=== PATIENT | female | born 2000 | race Hispanic/Latino ===

== ENCOUNTER 2022-05-09 15:53 | Emergency (ER) | payer OTHER ==
[~2022-05-09] VITALS: Ht 162.6 cm; Wt 99.8 kg
[2022-05-09 16:41] LABS: CLARITY,URINE CLOUDY (CLEAR); COLOR,URINE YELLOW (YELLOW); KETONES,URINE 1+ (NEGATIVE); LEUKOCYTE ESTERASE ,URINE 1+ (NEGATIVE); NITRITE,URINE NEGATIVE (NEGATIVE); PROTEIN,URINE DIPSTICK NEGATIVE (NEGATIVE); URINE UROBILINOGEN 0.2 mg/dL (0.2 - 1)
[2022-05-09 16:46] LABS: BACTERIA,URINE MANY /HPF; EPITHELIAL CELLS,URINE MANY /LPF; WBC,URINE (MAN) 21-50 /HPF (0-5)
[2022-05-09 16:48] LABS: MUCUS,URINE MODERATE (RARE)
[2022-05-09] MEDS ORDERED: MACROBID 100 M100 MG PO (17:23)
[2022-05-09] MEDS ORDERED: DIFLUCAN100 MG PO (17:24)
[2022-05-09 17:40] VITALS: BP 115/61
== END 2022-05-09 17:41 | disposition home or self-care (01) ==
LOC: ER 16:18
DX: B37.9 Candidiasis, unspecified (principal); N39.0 Urinary tract infection, site not specified; E28.2 Polycystic ovarian syndrome
CPT/HCPCS: 81001; 81025; 99283

== ENCOUNTER 2022-10-22 10:28 | Emergency (ER) | payer OTHER ==
[~2022-10-22] VITALS: Ht 162.6 cm; Wt 99.8 kg
[~2022-10-22 10:28] MED LIST: DIFLUCAN100 MG PO; MACROBID 100 M100 MG PO
[2022-10-22] MEDS ORDERED: SODIUM CHLORIDE 0.9% 1000ML 1,000 ML IV STA (10:36)
[2022-10-22] MEDS ORDERED: KETOROLAC TROMETHAMINE 30 MG/ML VIAL IV STA (10:36)
[2022-10-22 10:56] LABS: BASOPHILS % 0.3 % (0.0-1.0); EOSINOPHILS # (AUTO) 0.1 (0.0-0.4); EOSINOPHILS % 0.4 % (0.0-6.0); HEMATOCRIT 39.8 % (34.2-44.1); HEMOGLOBIN 12.6 g/dL (12.0-16.0); LYMPHOCYTES # (AUTO) 1.5 (1.0-3.2); LYMPHOCYTES % 11.5 % (18.0-39.1); MEAN CORPUSCULAR HEMOGLOBIN 25.7 pg (28-32); MEAN CORPUSCULAR HGB CONC 31.7 g/dL (31-35); MEAN CORPUSCULAR VOLUME 81.1 fL (81-99); MONOCYTES # (AUTO) 0.8 (0.2-0.8); MONOCYTES % 6.1 % (4.4-11.3); NEUTROPHILS # (AUTO) 10.8 (2.1-6.9); NEUTROPHILS % 81.1 % (38.7-80.0); PLATELET COUNT 239 x10e3/uL (140-360); RED BLOOD COUNT 4.91 x10e6/uL (3.6-5.1); RED CELL DISTRIBUTION WIDTH 14.3 % (11.7-14.4)
[2022-10-22] MEDS ORDERED: ACETAMINOPHEN 325 MG TAB PO ONE (11:00)
[2022-10-22 11:07] LABS: STREPTOCOCCUS GRP A ANTIGEN NEGATIVE (NEGATIVE)
[2022-10-22 11:11] LABS: INR 1.04; PROTHROMBIN TIME 14.1 seconds (11.9-14.5)
[2022-10-22 11:20] LABS: ALANINE AMINOTRANSFERASE 19 IU/L (0-55); ALBUMIN 3.8 g/dL (3.5-5.0); ALKALINE PHOSPHATASE 85 IU/L (40-150); ANION GAP 14.9 mmol/L (8-16); BLOOD UREA NITROGEN 9 mg/dL (7-26); BUN/CREATININE RATIO 12 (6-25); CARBON DIOXIDE 21 mmol/L (22-29); CHLORIDE 105 mmol/L (98-107); CREATININE, SERUM 0.78 mg/dL (0.57-1.11); GLUCOSE 116 mg/dL (74-118); POTASSIUM 3.9 mmol/L (3.5-5.1); SODIUM 137 mmol/L (136-145)
[2022-10-22] MEDS ORDERED: DEXAMETHASONE SOD PHOS 10 MG/1 ML VIAL IV ONE (12:30)
[2022-10-22] MEDS ORDERED: AMOX TR-K CLV1 EAC2 PO (12:34)
[2022-10-22 12:45] VITALS: BP 113/79
== END 2022-10-22 12:45 | disposition home or self-care (01) ==
LOC: ER 10:32
DX: R50.9 Fever, unspecified (principal); J02.9 Acute pharyngitis, unspecified; Z20.822 Contact with and (suspected) exposure to COVID-19
CPT/HCPCS: 36415; 71045; 80053; 83518; 83605; 84702; 85025; 85610; 85730; 87040; 87070; 99284; J0696; J1100; J1885; J7030; U0002

== ENCOUNTER 2022-12-11 14:50 | Emergency (ER) | payer MEDICARE, OTHER ==
[~2022-12-11] VITALS: Ht 162.6 cm; Wt 99.8 kg
[~2022-12-11 14:50] MED LIST changes: +AMOX TR-K CLV1 EAC2 PO
[2022-12-11 15:35] VITALS: O2SAT 100
[2022-12-11] MEDS ORDERED: IBUPROFEN 600 MG TAB PO STA (16:04)
[2022-12-11] MEDS ORDERED: DEXAMETHASONE SOD PHOS 10 MG/1 ML VIAL IM ONE (16:15)
[2022-12-11] MEDS ORDERED: IBUPROFEN600 MG PO (17:16)
[2022-12-11] MEDS ORDERED: PREDNISONE20 MG PO (17:16)
== END 2022-12-11 17:43 | disposition home or self-care (01) ==
LOC: ER 15:21
DX: R05.9 Cough, unspecified (principal); J02.9 Acute pharyngitis, unspecified; E28.2 Polycystic ovarian syndrome
CPT/HCPCS: 83518; 87070; 99283; J1100